=== PATIENT | female | born 1935 | race Caucasian/White ===

== ENCOUNTER 2017-01-08 15:56 | Emergency (ER) | payer MEDICARE, OTHER ==
[~2017-01-08] VITALS: Ht 167.6 cm; Wt 88.1 kg
[2017-01-08] MEDS ORDERED: BACITRACIN OINTMENT 0.9 GM PACKET TOP ONE ×2 (16:25→16:27)
[2017-01-08 16:35] VITALS: BP 151/66
== END 2017-01-08 16:36 | disposition home or self-care (01) ==
LOC: ED 15:57
DX: I83.891 Varicose veins of right lower extremity with other complications (principal); R58 Hemorrhage, not elsewhere classified
CPT/HCPCS: 99283; A9270; 99282